=== PATIENT | male | born 1980 | race Caucasian/White ===

== ENCOUNTER 2019-08-30 16:59 | Emergency (ER) | payer OTHER ==
[~2019-08-30] VITALS: Ht 175.3 cm; Wt 90.7 kg
[2019-08-30 17:12] VITALS: BP 128/91
--- NOTE | 2019-08-30 18:20 | NUR ---
AT BEDSIDE FOR EVAL
--- NOTE | 2019-08-30 19:07 | NUR ---
REPORT GIVEN TO CYNTHIA DAMON FOR [facility]IG[facility].
== END 2019-08-30 19:23 ==
LOC: ER 17:02
DX: B34.9 Viral infection, unspecified (principal)
CPT/HCPCS: 71045-TC